=== PATIENT | male | born 1965 | race Caucasian/White ===

== ENCOUNTER 2017-01-02 14:04 | Emergency (ER) | payer BC ==
--- NOTE | ~2017-01-02 | ER ---
PATIENT'S NAME: STEFF SOTELO [facility] AGE: 51 Y [address] ROOM: [place] [id number] LOCATION: [facility] ADMIT DATE: 01/02/2017 ER/Outpatient Report DISCHARGE DATE: 01/02/2017 FAMILY PHYSICIAN: PHYSICIAN, NO ATTENDING PHYSICIAN: Namita King Time of Patient's Arrival: 1404 hours. Time of Patient's Evaluation: 1425 hours. CHIEF COMPLAINT: Swollen jaw. HISTORY OF PRESENT ILLNESS: This is a 51-year-old male who presents to the ER. He states he has been having some troubles with his lower dental area for a couple of days. He states he tried to eat a sandwich today and it caused him to have some pain and he noticed he had a little bit of swelling into his right lower jaw as well. The patient states he has not been running any fevers. He states he did try to get into the dentist, but could not get until next week. He states that occasionally he has a sensation that he has a foul taste in his mouth as well. He denies any other problems at this time. ALLERGIES: NO KNOWN ALLERGIES. MEDICATIONS: Please see medication list in nurse's notes. PAST MEDICAL HISTORY: Negative. PAST SURGERIES: Shoulder surgery. SOCIAL HISTORY: Smokes 1 pack a day for the last 20 years. Drinks alcohol seldomly. REVIEW OF SYSTEMS: CONSTITUTIONAL: Denies any change in weight or fatigue. HEENT: He is having some right lower dental pain. SKIN: No lesions or rashes. PHYSICAL EXAMINATION: VITAL SIGNS: Height 5 feet 7 inches stated, weight 79.2 kg taken, blood pressure is 135/92, pulse 82, respirations 16, temperature 97.6 degrees PATIENT'S NAME: STEFF SOTELO [facility] AGE: 51 Y [address] ROOM: [place] [id number] LOCATION: [facility] ADMIT DATE: 01/02/2017 ER/Outpatient Report DISCHARGE DATE: 01/02/2017 FAMILY PHYSICIAN: PHYSICIAN, NO ATTENDING PHYSICIAN: Namita King tympanically, saturations 96% on room air. Dulce Coma Score is 15. GENERAL: Alert, calm, well-developed male, in no acute distress. HEENT: Head: Normocephalic. Eyes: Pupils are equal and reactive to light. Ears: TMs display good light reflexes bilaterally. Auditory canals clear. Throat: No exudates or erythema and does display moist mucous membranes. He does have widespread dental decay. He does have some tenderness over the right lower jaw line. I cannot express any purulent drainage from the area. With palpation over his facial cheek, I do not appreciate any significant swelling compared to the left side. NECK: No lymphadenopathy noted. LUNGS: Clear to auscultation bilaterally. No wheeze or crackles. Normal respiratory effort. HEART: Regular rate and rhythm. No lifts, thrills, or murmurs. EXTREMITIES: No clubbing, cyanosis, or edema. Full range of motion of all limbs. LABORATORY DATA AND X-RAYS: None were done. IMPRESSION: Right lower dental pain. ASSESSMENT AND PLAN: We will dismiss the patient home with a prescription for amoxicillin to use as directed. The patient states he does not want anything stronger than Tylenol or ibuprofen, so I advised him to use those as needed for any pain. He should eat soft foods and he needs to see his dentist as soon as possible. The patient understands and agrees with care. LAVERNE BALLARD PA-C FOR MD WENDI HOUSTON/holli /[id number] d: t: 01/06/17 1157, OUTPATIENT REPORT
== END 2017-01-02 14:32 | disposition disaster alternative care site (69) ==
LOC: GMED 14:04
DX: K08.89 Other specified disorders of teeth and supporting structures (principal); F17.210 Nicotine dependence, cigarettes, uncomplicated